=== PATIENT | male | born 1990 | race Caucasian/White ===

== ENCOUNTER 2024-06-30 22:04 | Emergency (ER) | payer OTHER ==
[~2024-06-30] VITALS: Ht 167.6 cm; Wt 122.5 kg
[2024-06-30] MEDS ORDERED: ASPIRIN 81 MG TAB.CHEW ONE (22:47)
[2024-06-30 22:49] LABS: BASOPHILS # (AUTO) 0.1 K/UL (0.0-0.2); BASOPHILS % (AUTO) 1.2 % (0.0-2.0); EOSINOPHILS # (AUTO) 0.3 K/uL (0.0-0.7); EOSINOPHILS % (AUTO) 3.3 % (0.0-7.0); HEMATOCRIT 43.4 % (36.7-47.1); HEMOGLOBIN 14.8 g/dL (12.5-16.3); LYMPHOCYTES # (AUTO) 3.4 K/uL (0.8-4.8); LYMPHOCYTES % (AUTO) 32.6 % (20.5-51.5); MEAN CORPUSCULAR HEMOGLOBIN 29.9 uug (23.8-33.4); MEAN CORPUSCULAR HGB CONC 34 g/dL (32.5-36.3); MONOCYTES # (AUTO) 0.7 K/uL (0.1-1.30); MONOCYTES % (AUTO) 6.6 % (0.0-11.0); NEUTROPHILS # (AUTO) 5.8 K/uL (1.8-8.9); NEUTROPHILS % (AUTO) 56.3 % (38.5-71.5); PLATELET COUNT (AUTO) 270 K/uL (152-348); RED BLOOD CELL COUNT(AUTO) 4.94 MIL/uL (4.06-5.63); RED CELL DISTRIBUTION WIDTH 13.3 % (12.1-16.2); WHITE BLOOD COUNT (AUTO) 10.3 K/uL (3.6-10.2)
[2024-06-30] MEDS: ASPIRIN 81 MG TAB.CHEW PO ONE (22:49)
[2024-06-30 23:13] LABS: ALANINE AMINOTRANSFERASE 41 U/L (16-63); ALBUMIN 4.1 g/dL (3.4-5.0); ALKALINE PHOSPHATASE 90 U/L (50-136); ASPARTATE AMINOTRANSFERASE 12 U/L (15-37); BILIRUBIN,DIRECT 0.1 mg/dL (0.0-0.2); BILIRUBIN,TOTAL 0.4 mg/dL (0.2-1.0); CARBON DIOXIDE 25 mmol/L (21-32); CHLORIDE 101 mmol/L (98-107); CREATININE 1.1 mg/dL (0.6-1.3); GLUCOSE 120 mg/dL (74-106); POTASSIUM 3.7 mmol/L (3.5-5.1); SODIUM SERUM 138 mmol/L (136-145); TOTAL PROTEIN, SERUM 7.7 g/dL (6.4-8.2); UREA NITROGEN, BLOOD 14 mg/dL (7-18)
[2024-06-30 23:15] LABS: NT-PRO BNP < 5 pg/mL (0-125)
[2024-07-01 01:47] VITALS: BP 139/86; TEMP 98; O2SAT 99
== END 2024-07-01 01:47 | disposition home or self-care (01) ==
LOC: ER 22:08
DX: R07.89 Other chest pain (principal); R00.2 Palpitations
CPT/HCPCS: 36415; 71045; 84484; 85025; A4606; A4663

== ENCOUNTER 2025-04-02 00:39 | Emergency (ER) | payer OTHER ==
[~2025-04-02] VITALS: Ht 167.6 cm; Wt 106.6 kg
[2025-04-02 01:22] LABS: PLATELET COUNT (AUTO) 224 K/uL (152-348); RED BLOOD CELL COUNT(AUTO) 4.51 MIL/uL (4.06-5.63); RED CELL DISTRIBUTION WIDTH 13.8 % (12.1-16.2); WHITE BLOOD COUNT (AUTO) 9.5 K/uL (3.6-10.2)
[2025-04-02] MEDS ORDERED: ASPIRIN 81 MG TAB.CHEW ONE (01:27)
[2025-04-02] MEDS ORDERED: LORAZEPAM 2 MG/1 ML VIAL ONE (01:27)
[2025-04-02] MEDS: ASPIRIN 81 MG TAB.CHEW PO ONE (01:33)
[2025-04-02] MEDS: LORAZEPAM 2 MG/1 ML VIAL IV ONE (01:33)
[2025-04-02 01:37] LABS: CREATININE 1.0 mg/dL (0.6-1.3); SODIUM SERUM 139 mmol/L (136-145); UREA NITROGEN, BLOOD 21 mg/dL (7-18)
[2025-04-02 01:43] LABS: ASPARTATE AMINOTRANSFERASE 13 U/L (15-37); TOTAL PROTEIN, SERUM 6.5 g/dL (6.4-8.2)
[2025-04-02 04:24] VITALS: BP 115/80; TEMP 98.2; O2SAT 98
== END 2025-04-02 04:25 | disposition home or self-care (01) ==
LOC: ER 01:01
DX: R07.9 Chest pain, unspecified (principal); R00.2 Palpitations; R05.9 Cough, unspecified
CPT/HCPCS: 99285; 96374; 71045; 80076; 80048; 83880; 85025; 85379; 84484 ×2; 36415; 93005; J2060; A4606; A4663

== ENCOUNTER 2025-05-17 15:47 | Emergency (ER) | payer OTHER ==
[~2025-05-17] VITALS: Ht 167.6 cm; Wt 104.3 kg
[2025-05-17 15:55] VITALS: BP 129/80; O2SAT 97
== END 2025-05-17 17:00 | disposition left against medical advice (07) ==
LOC: ER 15:47
DX: R07.89 Other chest pain (principal); Z53.21 Procedure and treatment not carried out due to patient leaving prior to being seen by health care provider
CPT/HCPCS: 93005; A4606; A4663

== ENCOUNTER 2025-07-11 22:02 | Emergency (ER) | payer OTHER ==
[~2025-07-11] VITALS: Ht 167.6 cm; Wt 99.8 kg
[2025-07-11 22:05] VITALS: BP 117/72
[2025-07-11] MEDS ORDERED: KETOROLAC TROMETHAMINE 30 MG INJ ONE (22:28)
[2025-07-11] MEDS: KETOROLAC TROMETHAMINE 30 MG INJ IM ONE (22:35)
[2025-07-11] MEDS ORDERED: NAPR-1009 PO (22:39)
[2025-07-11] MEDS ORDERED: CYCL10TA9 PO (22:39)
[2025-07-11 22:46] VITALS: BP 118/77; TEMP 98; O2SAT 99
== END 2025-07-11 22:49 | disposition home or self-care (01) ==
LOC: ER 22:03
DX: S16.1XXA Strain of muscle, fascia and tendon at neck level, initial encounter (principal); R07.89 Other chest pain; I10 Essential (primary) hypertension; G89.29 Other chronic pain; F41.9 Anxiety disorder, unspecified; F17.290 Nicotine dependence, other tobacco product, uncomplicated; Z88.7 Allergy status to serum and vaccine; Z91.148 Patient's other noncompliance with medication regimen for other reason; X58.XXXA Exposure to other specified factors, initial encounter; Y93.89 Activity, other specified; Y92.89 Other specified places as the place of occurrence of the external cause; Y99.9 Unspecified external cause status
CPT/HCPCS: 99283; 96372; J1885; A4606; A4663